=== PATIENT | female | born 1935 | race Caucasian/White ===

== ENCOUNTER 2018-03-28 00:03 | Emergency (ER) | payer MEDICARE, BC ==
[2018-03-28] MEDS ORDERED: SODIUM CHLORIDE 0.9% 500 ML IV ONE (00:41)
[2018-03-28] MEDS ORDERED: SODIUM CHLORIDE 0.9% 1,000 ML IV ONE (00:41)
--- NOTE | 2018-03-28 00:41 | ED ---
General Adult HPI - General Stated complaint: Hallucinations Time Seen by Provider: 03/28/18 00:16 Source: RN notes reviewed, old records reviewed - History of Present Illness Initial comments: This is an 82-year-old female to the ER for evaluation patient presents today for evaluation of hallucinations hallucinations. Per EMS patient's poor historian, although patient herself denies any complaints, she states she does admit to seeing insects, she comes from [facility]. Patient per EMS called 911, the patient herself states the room air across the street called 911. Again patient is unreliable. Patient does know where she is , she is normal she got here. Again she has no complaints - Related Data Home Medications Medication Instructions Recorded Confirmed Fluticasone Nasal [place] [Flonase 2 spr EA NOSTRIL PC-LUNCH 08/23/17 08/23/17 Nasal [place]] Verapamil HCl [Verapamil ER] 240 mg PO PC-LUNCH 08/23/17 08/23/17 Previous Rx's Medication Instructions Recorded Acetaminophen Tab [Tylenol] 650 mg PO Q6HR PRN tab 08/28/17 Aspirin EC [Ecotrin Low Dose] 81 mg PO DAILY #1 tablet. 08/28/17 ALPRAZolam [Xanax] 0.25 mg PO TID PRN #20 tab 08/31/17 Docusate [Colace] 100 mg PO BID #20 capsule 08/31/17 Meclizine [Antivert] 12.5 mg PO TID PRN #1 tablet 08/31/17 traMADol HCL [Ultram] 50 mg PO Q6HR PRN #20 tab 08/31/17 Allergies Allergy/AdvReac Type Severity Reaction Status Date / Time Sulfa (Sulfonamide Allergy Unknown Verified 03/28/18 00:53 Antibiotics) Review of Systems ROS Statement: Those systems with pertinent positive or pertinent negative responses have been documented in the HPI. ROS Other: All systems not noted in ROS Statement are negative. Past Medical History Past Medical History: Cancer, Heart Failure, CVA/TIA, Osteoarthritis (OA) Additional Past Medical History / Comment(s): breast Cx (right side), tia, cataracts, mac degeneration rt eye, per daughter pt had st/svt. pt stated she had a mi but daughter stated no verification of one that she knows of. History of Any Multi-Drug Resistant Organisms: None Reported Past Surgical History: Hysterectomy Additional Past Surgical History / Comment(s): breast removal on right side due to CX. injections rt eye Past Anesthesia/Blood Transfusion Reactions: Motion Sickness Smoking Status: Never smoker - Past Family History Father Additional Family Medical History / Comment(s): in his 90's from "old age" Mother Additional Family Medical History / Comment(s): in her 90's from "old age" General Exam Limitations: altered mental status General appearance: alert, in no apparent distress Head exam: Present: atraumatic, normocephalic, normal inspection Eye exam: Present: normal appearance, PERRL, EOMI. Absent: scleral icterus, conjunctival injection, periorbital swelling ENT exam: Present: normal exam, mucous membranes moist Neck exam: Present: normal inspection. Absent: tenderness, meningismus, lymphadenopathy Respiratory exam: Present: normal lung sounds bilaterally. Absent: respiratory distress, wheezes, rales, rhonchi, stridor Cardiovascular Exam: Present: regular rate, normal rhythm, normal heart sounds. Absent: systolic murmur, diastolic murmur, rubs, gallop, clicks GI/Abdominal exam: Present: soft, normal bowel sounds. Absent: distended, tenderness, guarding, rebound, rigid Extremities exam: Present: normal inspection, full ROM, normal capillary refill. Absent: tenderness, pedal edema, joint swelling, calf tenderness Back exam: Present: normal inspection Neurological exam: Present: alert, oriented X3, CN II-XII intact Psychiatric exam: Present: normal affect, normal mood Skin exam: Present: warm, dry, intact, normal color. Absent: rash Course Vital Signs 03/28/18 03/28/18 00:53 03:44 Temperature 97.2 F L Pulse Rate 79 88 Respiratory 18 18 Rate Blood Pressure 165/88 178/78 O2 Sat by Pulse 97 98 Oximetry Medical Decision Making - Medical Decision Making 82 female the ER for evaluation presents for evaluation regarding hallucinations. Patient states upon arrival to ER. Normal and wants the year, she is capable of making O medical decisions and can be discharged home Disposition Clinical Impression: Hallucinations Disposition: HOME SELF-CARE Condition: Undetermined Instructions: Hallucinations (ED) Is patient prescribed a controlled substance at d/c from ED?: No Referrals: Walter Vicente MD [Primary Care Provider] - 1-2 days
[2018-03-28 00:57] VITALS: RESP 18; TEMP 97.2
--- NOTE | 2018-03-28 01:23 | CT ---
EXAMINATION TYPE: CT brain wo con DATE OF EXAM: 03/28/2018 COMPARISON: 08/23/2017 HISTORY: AMS CT DLP: 1096.30 mGycm Automated exposure control for dose reduction was used. FINDINGS: There is cerebral cortical atrophy. There is moderate hypodensity in the periventricular white matter . There is no mass effect nor midline shift. There is no sign of intracranial hemorrhage. The calvari um is intact. There is mild mucosal thickening in the maxillary sinuses. IMPRESSION: CEREBRAL ATROPHY AND CHRONIC SMALL VESSEL ISCHEMIA. NO ACUTE INTRACRANIAL ABNORMALITY. NO SIGNIFICANT CHANGE COMPARED TO OLD EXAM.
[2018-03-28 03:45] VITALS: BP 178/78; PULSE 88
== END 2018-03-28 03:50 | disposition home or self-care (01) ==
LOC: EC 00:03
DX: R44.3 Hallucinations, unspecified (principal); I50.9 Heart failure, unspecified; I47.1 Supraventricular tachycardia; I25.2 Old myocardial infarction; Z86.73 Personal history of transient ischemic attack (TIA), and cerebral infarction without residual deficits; Z85.3 Personal history of malignant neoplasm of breast; Z79.51 Long term (current) use of inhaled steroids; Z79.899 Other long term (current) drug therapy; Z88.2 Allergy status to sulfonamides
CPT/HCPCS: 70450; 99285